=== PATIENT | female | born 1960 | race African-American/Black ===

== ENCOUNTER 2021-06-12 21:51 | Emergency (ER) | payer MEDICARE ==
[~2021-06-12] VITALS: Ht 175.3 cm; Wt 87.1 kg
[2021-06-12] MEDS ORDERED: ALBUTEROL SULF 0.083% NEB SOLN 3 ML NEB NEB STA (22:17)
[2021-06-12] MEDS ORDERED: IPRATROPIUM BROMIDE 0.02% 2.5 ML NEB NEB ONE (22:30)
[2021-06-12] MEDS ORDERED: METHYLPREDNISOLONE SOD SUCC 125 MG/2ML VIAL IM ONE (22:30)
[2021-06-13] MEDS ORDERED: CASIRIVIMAB/IMDEVIMAB 10 ML in SODIUM CHLORIDE 0.9% 100 ML IV ONE (00:15)
[2021-06-13 01:38] VITALS: BP 138/74
== END 2021-06-13 01:45 | disposition home or self-care (01) ==
LOC: ER 22:17
DX: U07.1 COVID-19 (principal); R50.9 Fever, unspecified; R05.9 Cough, unspecified; J45.909 Unspecified asthma, uncomplicated
CPT/HCPCS: 71045; 94640; 99284; J2930; J7050; U0002

== ENCOUNTER 2021-06-26 22:57 | Emergency (ER) | payer MEDICARE ==
[~2021-06-26] VITALS: Ht 175.3 cm; Wt 87.1 kg
[2021-06-26] MEDS ORDERED: KETOROLAC TROMETHAMINE 30 MG/ML VIAL IM STA (23:04)
[2021-06-26] MEDS ORDERED: NAPROXEN250 MG PO (23:51)
== END 2021-06-26 23:55 | disposition home or self-care (01) ==
LOC: ER 23:05
DX: M25.562 Pain in left knee (principal); M79.662 Pain in left lower leg; E11.9 Type 2 diabetes mellitus without complications; J45.909 Unspecified asthma, uncomplicated; Z86.16 Personal history of COVID-19
CPT/HCPCS: 93971; 99282; J1885

== ENCOUNTER → 2021-07-01 | Outpatient (CLI) | payer MEDICARE ==
[~2021-07-01] MED LIST: NAPROXEN250 MG PO
[2021-07-01 16:45] LABS: BASOPHILS # (AUTO) 0.1 (0.0-0.1); BASOPHILS % 1.1 % (0.0-1.0); EOSINOPHILS # (AUTO) 0.4 (0.0-0.4); EOSINOPHILS % 4.6 % (0.0-6.0); HEMATOCRIT 38.7 % (34.2-44.1); HEMOGLOBIN 11.7 g/dL (12.0-16.0); LYMPHOCYTES # (AUTO) 2.7 (1.0-3.2); LYMPHOCYTES % 33.9 % (18.0-39.1); MEAN CORPUSCULAR HEMOGLOBIN 29.1 pg (28-32); MEAN CORPUSCULAR HGB CONC 30.2 g/dL (31-35); MEAN CORPUSCULAR VOLUME 96.3 fL (81-99); MONOCYTES # (AUTO) 0.9 (0.2-0.8); NEUTROPHILS # (AUTO) 3.9 (2.1-6.9); NEUTROPHILS % 48.7 % (38.7-80.0); PLATELET COUNT 327 x10e3/uL (140-360); RED BLOOD COUNT 4.02 x10e6/uL (3.6-5.1)
[2021-07-01 17:06] LABS: ALBUMIN 4.2 g/dL (3.5-5.0); ALBUMIN/GLOBULIN RATIO 1.3 (0.8-2.0); ANION GAP 13.3 mmol/L (8-16); CALCIUM 9.4 mg/dL (8.4-10.2); CREATININE, SERUM 0.89 mg/dL (0.57-1.11); POTASSIUM 4.3 mmol/L (3.5-5.1)
== END ==
LOC: RAD 15:12
PROVIDERS: ATTEND Nurse Practitioner Adult Health
DX: M25.562 Pain in left knee (principal)
CPT/HCPCS: 36415; 80053; 85025; 85379

== ENCOUNTER → 2021-09-03 | Day surgery (SDC) | payer BC, MEDICARE ==
[2021-09-01 09:02] LABS: CALCIUM 9.7 mg/dL (8.4-10.2); CREATININE, SERUM 1.21 mg/dL (0.57-1.11)
[~2021-09-03] MED LIST changes: +ACETAMINOPHEN 1000 MG/100 ML 0 ML IV ONE; +ACETAMINOPHEN 1000 MG/100 ML 100 ML IV ONE; +ACETAMINOPHEN/CODEINE 300MG - 30MG TAB ONE; +ALBUTEROL0.63 MG/3 NEB; +BUPIVACAINE HCL 0.5% INJ 30 ML VIAL INJ ONE; +CHLOROPHYLL 201 EACH PO; +DEXAMETHASONE SOD PHOS INJ 4 MG/ML SDV ONE; +DYMISTA NASAL S23 GM INH; +FLONASE ALLERG9.9 ML INH; +GLYBURIDE5 MG PO; +HYDROMORPHONE 1MG/1ML INJ ONE; +KETAMINE HCL INJ 50 MG/ML 10 ML VIAL ONE; +KETOROLAC TROMETHAMINE 30 MG/ML VIAL ONE; +LIDOCAINE HCL 2% LOCAL INJ 5 ML SDV VIAL INJ ONE; +LINZESS290 MCG PO; +MIDAZOLAM HCL 2 MG/2 ML VIAL ONE; +MOBIC7.5 MG PO; +MONTELUKAST SOD10 MG PO; +OMEPRAZOLE40 MG PO; +ONDANSETRON HCL INJ 2MG/ML 2ML 2 MG/ML VIAL ONE; +OXYBUTYNIN CHLOR5 M1 PO; +POTASSIUM CHLO20 ME1 PO; +POVIDONE IODINE 0.05% 0.05 % ML PO ONE; +PROPOFOL IV EMULSION 10 MG/ML 20 ML VIAL ONE; +SEVOFLURANE INHAL SOLN 250 ML PEN BTL ONE; +SODIUM CHLORIDE 0.9% 50ML 100 ML ONE; +SYMBICORT 80-10.2 GM INH; +TOPAMAX50 MG PO; +TUMERIC PO; +VENTOLIN HFA18 GM INH; +VITAMIN B122500 MCG PO; +VITAMIN C500 M6 PO; +VITAMIN D PO; +ZINC PO
[2021-09-03 13:35] VITALS: BP 131/89
== END | disposition home or self-care (01) ==
LOC: OR 07:51
PROVIDERS: ATTEND Specialist
DX: S83.222A Peripheral tear of medial meniscus, current injury, left knee, initial encounter (principal); S83.262A Peripheral tear of lateral meniscus, current injury, left knee, initial encounter; M17.12 Unilateral primary osteoarthritis, left knee; M67.52 Plica syndrome, left knee; M22.42 Chondromalacia patellae, left knee; M23.42 Loose body in knee, left knee; M71.562 Other bursitis, not elsewhere classified, left knee; E11.9 Type 2 diabetes mellitus without complications; E78.00 Pure hypercholesterolemia, unspecified; J45.909 Unspecified asthma, uncomplicated; E78.5 Hyperlipidemia, unspecified; K21.9 Gastro-esophageal reflux disease without esophagitis; E66.9 Obesity, unspecified; X58.XXXA Exposure to other specified factors, initial encounter; Z88.6 Allergy status to analgesic agent; Z88.3 Allergy status to other anti-infective agents; Z01.810 Encounter for preprocedural cardiovascular examination; Z01.812 Encounter for preprocedural laboratory examination; Z20.822 Contact with and (suspected) exposure to COVID-19; Z91.041 Radiographic dye allergy status; Z79.84 Long term (current) use of oral hypoglycemic drugs; Z79.899 Other long term (current) drug therapy; Z86.16 Personal history of COVID-19
CPT/HCPCS: 29880; 36415 ×2; 80048; 82948; 93005; J0131; J0690; J1100; J1170; J1885; J2001; J2250; J2405; J2704; U0002

== ENCOUNTER 2021-09-10 18:04 | Emergency (ER) | payer BC, MEDICARE ==
[~2021-09-10] VITALS: Ht 175.3 cm; Wt 87.1 kg
[~2021-09-10 18:04] MED LIST changes: -ACETAMINOPHEN 1000 MG/100 ML 0 ML IV ONE; -ACETAMINOPHEN 1000 MG/100 ML 100 ML IV ONE; -ACETAMINOPHEN/CODEINE 300MG - 30MG TAB ONE; -BUPIVACAINE HCL 0.5% INJ 30 ML VIAL INJ ONE; -DEXAMETHASONE SOD PHOS INJ 4 MG/ML SDV ONE; -HYDROMORPHONE 1MG/1ML INJ ONE; -KETAMINE HCL INJ 50 MG/ML 10 ML VIAL ONE; -KETOROLAC TROMETHAMINE 30 MG/ML VIAL ONE; -LIDOCAINE HCL 2% LOCAL INJ 5 ML SDV VIAL INJ ONE; -MIDAZOLAM HCL 2 MG/2 ML VIAL ONE; -ONDANSETRON HCL INJ 2MG/ML 2ML 2 MG/ML VIAL ONE; -POVIDONE IODINE 0.05% 0.05 % ML PO ONE; -PROPOFOL IV EMULSION 10 MG/ML 20 ML VIAL ONE; -SEVOFLURANE INHAL SOLN 250 ML PEN BTL ONE; -SODIUM CHLORIDE 0.9% 50ML 100 ML ONE
[2021-09-10] MEDS ORDERED: HYDROCODONE/APAP 5MG-325MG TAB PO ONE (18:45)
[2021-09-10] MEDS ORDERED: KETOROLAC TROMETHAMINE 60 MG/2 ML VIAL IM ONE (19:45)
[2021-09-10] MEDS ORDERED: ULTRAM50 MG PO (20:58)
[2021-09-10] MEDS ORDERED: Morphine 4mg Syringe 4 MG/ML INJ IV STA (21:01)
[2021-09-10] MEDS ORDERED: ONDANSETRON HCL INJ 2MG/ML 2ML 2 MG/ML VIAL IV STA (21:02)
[2021-09-10 22:00] VITALS: BP 133/88
== END 2021-09-10 22:02 | disposition home or self-care (01) ==
LOC: ER 18:08
DX: G89.18 Other acute postprocedural pain (principal); R60.9 Edema, unspecified; E11.9 Type 2 diabetes mellitus without complications; J45.909 Unspecified asthma, uncomplicated; Z86.16 Personal history of COVID-19
CPT/HCPCS: 93971; 99283; J1885; J2270; J2405

== ENCOUNTER 2021-10-08 10:00 | Outpatient (RCR) | payer MEDICARE, BC ==
[~2021-10-08 10:00] MED LIST changes: +ULTRAM50 MG PO
== END 2021-10-09 ==
LOC: PT 10:00
PROVIDERS: ATTEND Specialist
DX: M17.12 Unilateral primary osteoarthritis, left knee (principal); S83.222D Peripheral tear of medial meniscus, current injury, left knee, subsequent encounter; S83.262D Peripheral tear of lateral meniscus, current injury, left knee, subsequent encounter; M25.562 Pain in left knee; R22.42 Localized swelling, mass and lump, left lower limb; M25.662 Stiffness of left knee, not elsewhere classified; M62.81 Muscle weakness (generalized); R26.2 Difficulty in walking, not elsewhere classified

== ENCOUNTER 2021-11-06 07:58 | Outpatient (RCR) | payer MEDICARE, BC | END 2021-11-08 | LOC: PT 07:58 | PROVIDERS: ATTEND Specialist | DX: M17.12 Unilateral primary osteoarthritis, left knee (principal); S83.222D Peripheral tear of medial meniscus, current injury, left knee, subsequent encounter; S83.262D Peripheral tear of lateral meniscus, current injury, left knee, subsequent encounter; R22.42 Localized swelling, mass and lump, left lower limb; M62.81 Muscle weakness (generalized); M25.562 Pain in left knee; M25.662 Stiffness of left knee, not elsewhere classified; R26.2 Difficulty in walking, not elsewhere classified | CPT/HCPCS: 97139 ==

== ENCOUNTER 2021-11-12 09:00 | Outpatient (RCR) | payer BC, MEDICARE | END 2021-12-09 | LOC: PT 09:00 | PROVIDERS: ATTEND Specialist | DX: M17.12 Unilateral primary osteoarthritis, left knee (principal) | CPT/HCPCS: 97139 ==

== ENCOUNTER 2022-09-28 07:27 | Emergency (ER) | payer BC, MEDICARE, OTHER ==
[~2022-09-28] VITALS: Ht 175.3 cm; Wt 87.1 kg
[2022-09-28] MEDS ORDERED: KETOROLAC TROMETHAMINE 30 MG/ML VIAL IV STA (07:49)
[2022-09-28] MEDS ORDERED: ACETAMINOPHEN 325 MG TAB PO ONE (08:00)
[2022-09-28] MEDS ORDERED: METOCLOPRAMIDE HCL 10 MG/2ML VIAL IV ONE (08:00)
[2022-09-28] MEDS ORDERED: DIPHENHYDRAMINE HCL INJ 50 MG/ML VIAL IV PRN (08:00)
[2022-09-28] MEDS ORDERED: SODIUM CHLORIDE 0.9% 1000ML 1,000 ML IV ONE (08:00)
[2022-09-28] MEDS ORDERED: ACETAMINOPHEN 325 MG TAB ONE (08:10)
[2022-09-28] MEDS ORDERED: SODIUM CHLORIDE 0.9% 1000ML 1,000 ML ONE (08:10)
[2022-09-28] MEDS ORDERED: METOCLOPRAMIDE HCL 10 MG/2ML VIAL ONE (08:10)
[2022-09-28] MEDS ORDERED: KETOROLAC TROMETHAMINE 30 MG/ML VIAL ONE (08:10)
[2022-09-28 10:59] VITALS: BP 136/80
== END 2022-09-28 10:55 | disposition home or self-care (01) ==
LOC: ER 07:30
DX: G43.909 Migraine, unspecified, not intractable, without status migrainosus (principal); E11.9 Type 2 diabetes mellitus without complications; J45.909 Unspecified asthma, uncomplicated
CPT/HCPCS: 99283; J1885; J2765; J7030